=== PATIENT | male | born 1945 | race Caucasian/White ===

== ENCOUNTER 2017-08-31 11:00 | Observation (INO) | payer OTHER ==
[2017-08-31] VITALS (9 sets, daily range): BP systolic 108–122; BP diastolic 53–64
[~2017-08-31] VITALS: Ht 170.2 cm; Wt 85.0 kg
[~2017-08-31 11:00] MED LIST: ADULT LOW DOSE81 M1 PO; ASCORBIC ACID500 M3 PO; CALCIUM-MAGNES1 EAC4 PO; CENTRAL VITE F1 EACH PO; CEPHALEXIN500 MG PO; CIPRO250 MG PO; CIPROFLOXACIN250 MG PO; COMPLEX B-1001 EACH PO; COUMADIN1 MG PO; COUMADIN2 MG PO; COUMADIN3 MG PO; COUMADIN4 MG PO; DECADRON2 MG PO; DEXAMETHASONE4 MG PO; EXTRA STRENGTH500 M1 PO; FIORICET,ESG1 TABLET PO; FLOMAX0.4 MG PO; GRAPE SEED EXTR50 MG PO; HYDROCODON-ACE1 EA11 PO; JADENU90 MG PO; LIPITOR40 MG PO; LIPITOR80 MG PO; LOVENOX80 MG/0.8 SC; POTASSIUM/CALCIUM PO; PROCRIT40000 UNI1 IV; PROCRIT40000 UNI1 SC; PROMACTA25 MG PO; PROMACTA50 MG PO; SF 5000 PLUS51 GM DT; TRAMADOL HCL50 MG PO; VITAMIN C1000 M1 PO; VITAMIN D31000 UNI2 PO; WARFARIN SODIUM2 MG PO; WARFARIN SODIUM4 MG PO; ZARXIO300 MCG/0. SC
[2017-08-31 12:19] LABS: CHLORIDE 108 mEq/L (99-109); SODIUM 137 mEq/L (136-147)
[2017-08-31 12:20] LABS: HEMATOCRIT 22.4 % (38.0-50.0); INTER. NORMALIZED RATIO 1.8; MCH 31.5 PG (29.0-34.0); MCHC 33.9 G/DL (30.0-36.0); MCV 92.9 FL (86-99); MEAN PLAT.VOLUME 12.5 uM^3 (9.0-12.4); PROTHROMBIN TIME 19.8 SEC (10.2-12.9); RBC DIS.WIDTH-CV 19.9 % (11.8-14.6); RBC DIS.WIDTH-SD 67.7 % (39-53); RED BLOOD COUNT 2.41 M/uL (4.00-5.50)
[2017-08-31 12:21] LABS: GLUCOSE 117 mg/dL (70-99)
[2017-08-31 12:22] LABS: ANION GAP 7 MEQ/L (2-14); PLATELET COUNT 106 K/uL (156-360); WHITE BLOOD COUNT 1.4 K/uL (4.1-10.2)
[2017-08-31 12:23] LABS: PTT 33.1 SEC (25-37)
[2017-08-31 12:25] LABS: GFR ESTIMATE (CALCULATED) 45 mL/min/
[2017-08-31 12:26] LABS: UREA NITROGEN (BUN) 25 mg/dL (9-23)
[2017-08-31 12:30] LABS: TROP-I INTERPRETATION NEGATIVE; TROPONIN-I 0.01 ng/mL (0.0-0.30)
[2017-08-31 13:14] LABS: ABS NEUTROPHIL COUNT 0.6; ANISOCYTOSIS 1+; BAND NEUTROPHILS 5.2 % (0-8.0); BASOPHILS 0.9 %; EOSINOPHIL ABS CT 0; INSTRUMENT ABS NEUTROPHIL CT 0.4 K/uL; LYMPHOCYTES 43.8 % (15.0-45.0); MACROCYTES 1+; METAMYELOCYTES 0.9 %; MYELOCYTES 0.9 %; NUCLEATED RBC'S 0.9; OVALOCYTES 1+; PLAT.SUFFICIENCY DECREASED; POIKILOCYTOSIS 1+; SMUDGE CELLS 12.3
[2017-08-31] MEDS ORDERED: JADENU360 MG PO (13:40)
[2017-08-31] MEDS ORDERED: COLCRYS0.6 MG PO (13:42)
[2017-08-31] MEDS ORDERED: TYLENOL EXTRA500 MG PO (13:42)
[2017-08-31 18:42] LABS: TROP-I INTERPRETATION NEGATIVE; TROPONIN-I 0.02 ng/mL (0.0-0.30)
[2017-09-01 00:07] VITALS: BP 107/55
[2017-09-01 01:29] LABS: TROP-I INTERPRETATION NEGATIVE; TROPONIN-I 0.01 ng/mL (0.0-0.30)
[2017-09-01 03:45] VITALS: BP 104/53
[2017-09-01 06:06] LABS: HEMATOCRIT 25.6 % (38.0-50.0); MCH 30.7 PG (29.0-34.0); MCHC 33.6 G/DL (30.0-36.0); MCV 91.4 FL (86-99); MEAN PLAT.VOLUME 13.5 uM^3 (9.0-12.4); PLATELET COUNT 101 K/uL (156-360); RBC DIS.WIDTH-CV 18.8 % (11.8-14.6); RBC DIS.WIDTH-SD 62.9 % (39-53)
[2017-09-01 06:07] LABS: WHITE BLOOD COUNT 1.9 K/uL (4.1-10.2)
[2017-09-01 06:25] LABS: ANION GAP 5 MEQ/L (2-14); CHLORIDE 109 MEQ/L (99-109); GFR ESTIMATE (CALCULATED) 53 mL/min/; GLUCOSE 108 mg/dL (70-99); SAMPLE HEMOLYSIS CHECK 0; SAMPLE ICTERIC CHECK 0; SAMPLE LIPEMIA CHECK 0; SODIUM 136 MEQ/L (136-147); UREA NITROGEN (BUN) 21 mg/dL (9-23)
[2017-09-01 06:29] LABS: INTER. NORMALIZED RATIO 2.3
[2017-09-01 08:14] VITALS: BP 113/53
[2017-09-01 11:46] LABS: INFLUENZA A VIRAL ANTIGEN POSITIVE; INFLUENZA B VIRAL ANTIGEN NEGATIVE
[2017-09-01 12:00] VITALS: BP 127/58
[2017-09-01] MEDS ORDERED: OSELTAMIVIR PHO30 MG PO (13:58)
== END 2017-09-01 14:52 | disposition home or self-care (01) ==
LOC: EME 11:00 → 5WEST 12:50 → EDOF 12:50 → ENRESERV 12:52 → 5WEST 14:36
PROVIDERS: Emergency Medicine; Internal Medicine; Nurse Practitioner Adult Health
DX: R55 Syncope and collapse (principal); J10.89 Influenza due to other identified influenza virus with other manifestations; Z95.2 Presence of prosthetic heart valve; I35.0 Nonrheumatic aortic (valve) stenosis; D46.9 Myelodysplastic syndrome, unspecified; I10 Essential (primary) hypertension; Z79.01 Long term (current) use of anticoagulants; I25.10 Atherosclerotic heart disease of native coronary artery without angina pectoris; Z95.1 Presence of aortocoronary bypass graft; I27.20 Pulmonary hypertension, unspecified; N40.0 Benign prostatic hyperplasia without lower urinary tract symptoms; M19.90 Unspecified osteoarthritis, unspecified site; K40.90 Unilateral inguinal hernia, without obstruction or gangrene, not specified as recurrent; D64.9 Anemia, unspecified; Z80.0 Family history of malignant neoplasm of digestive organs; D72.819 Decreased white blood cell count, unspecified
CPT/HCPCS: 70450; 71010; 80048; 84484; 85025; 85027; 85610; 85730; 86850; 86900; 86901; 86920; 87502; 87651 90; 93005; 93306; 93880; 95819; 99281; 99285; G0378; J7030; P9016

== ENCOUNTER 2018-03-07 13:10 | Emergency (ER) | payer OTHER ==
[2018-03-07] VITALS (9 sets, daily range): BP systolic 112–138; BP diastolic 49–79
[~2018-03-07] VITALS: Ht 172.7 cm; Wt 88.1 kg
[~2018-03-07 13:10] MED LIST changes: +CALCIUM500 M4 PO; +CIPROFLOXACIN100 MG PO; +COLCRYS0.6 MG PO; +JADENU360 MG PO; +OSELTAMIVIR PHO30 MG PO; +TYLENOL EXTRA500 MG PO
[2018-03-07 14:15] LABS: CHLORIDE 109 mEq/L (99-109); POTASSIUM 3.5 mEq/L (3.7-5.4); SODIUM 143 mEq/L (136-147)
[2018-03-07 14:17] LABS: GLUCOSE 103 mg/dL (70-99)
[2018-03-07 14:21] LABS: CREATININE 0.9 mg/dL (0.6-1.3); GFR ESTIMATE (CALCULATED) > 59 mL/min/ (58.99-99999); PTT 32.3 SEC (25-37)
[2018-03-07 14:22] LABS: HEMATOCRIT 17.4 % (38.0-50.0); MCH 32.1 PG (29.0-34.0); MCHC 33.9 G/DL (30.0-36.0); MCV 94.6 FL (86-99); RBC DIS.WIDTH-CV 19.9 % (11.8-14.6); RBC DIS.WIDTH-SD 65.6 % (39-53); RED BLOOD COUNT 1.84 M/uL (4.00-5.50); UREA NITROGEN (BUN) 23 mg/dL (9-23); WHITE BLOOD COUNT 2.2 K/uL (4.1-10.2)
[2018-03-07 14:32] LABS: HEMOGLOBIN 5.9 G/DL (12.5-16.6)
[2018-03-07 15:12] LABS: PLATELET CLUMPS PRESENT - PLATELET COUNT APPEARS ADQ.
[2018-03-07 15:13] LABS: PLATELET COUNT UNABLE TO REPORT K/uL (156-360)
== END 2018-03-07 21:30 | disposition home or self-care (01) ==
LOC: EME 13:10
PROVIDERS: Emergency Medicine
PROC: 30233N1 Transfusion of Nonautologous Red Blood Cells into Peripheral Vein, Percutaneous Approach (ICD-10-PCS; principal; 2018-03-07)
DX: D64.9 Anemia, unspecified (principal); D46.9 Myelodysplastic syndrome, unspecified; F41.9 Anxiety disorder, unspecified; F10.10 Alcohol abuse, uncomplicated; E78.5 Hyperlipidemia, unspecified; I50.9 Heart failure, unspecified; Z95.2 Presence of prosthetic heart valve; Z95.1 Presence of aortocoronary bypass graft; Z79.01 Long term (current) use of anticoagulants
CPT/HCPCS: 36415; 80048; 85025; 85027; 85610; 85730; 86850; 86900; 86901; 99281; 99284; P9016

== ENCOUNTER → 2018-04-16 | Outpatient (CLI) | payer OTHER ==
[2018-04-16] VITALS (7 sets, daily range): BP systolic 104–131; BP diastolic 52–61
[~2018-04-16] VITALS: Ht 175.3 cm; Wt 80.0 kg
== END | disposition home or self-care (01) ==
LOC: IVINF 09:00
DX: D64.9 Anemia, unspecified (principal)
CPT/HCPCS: 36430; 86999; 96374; 96375; J1200; J1940

== ENCOUNTER → 2018-05-21 | Outpatient (CLI) | payer OTHER ==
[~2018-05-21] VITALS: Ht 175.3 cm; Wt 80.0 kg
[2018-05-21] VITALS (7 sets, daily range): BP systolic 96–116; BP diastolic 50–58
[~2018-05-21] MED LIST changes: +GLUCOSAMINE CH PO
== END | disposition home or self-care (01) ==
LOC: IVINF 16:00
DX: D46.9 Myelodysplastic syndrome, unspecified (principal); D63.8 Anemia in other chronic diseases classified elsewhere
CPT/HCPCS: 36430; 86999; 96374; J1200